=== PATIENT | male | born 1975 | race Caucasian/White ===

== ENCOUNTER 2017-06-07 17:27 | Emergency (ER) | payer SELFPAY ==
[2017-06-07] MEDS ORDERED: FLUORESCEIN SODIUM 1 MG STRIP OP ONE (17:41)
[2017-06-07] MEDS ORDERED: PROPARACAINE 0.5% 15 ML OPHT DROP ONE (17:41)
[2017-06-07] MEDS ORDERED: OFLOXACIN 0.3% SOLN PREPACK OPHT.BTL TAKEHOME ONE (18:16)
[2017-06-07 18:17] VITALS: RESP 20
[2017-06-07 18:36] VITALS: BP 151/87; PULSE 68; TEMP 97.9; O2SAT 95
--- NOTE | 2017-06-07 18:37 | EDPHY ---
H & P Time Seen by Provider: 06/07/17 17:39 HPI/ROS: HPI Right eye irritation. 42-year-old male by private vehicle with his co-worker. Patient was using a metal tank builder prior to arrival to the emergency department. He was not using eye protection. He presents with pain, foreign body and irritation to the right eye. He reports he has some blurry vision from the right eye. No other injury or complaint. ROS: Constitutional: No fever, no chills. No weakness. Eyes: No discharge. As above. Skin: No rashes. No lacerations or abrasions. Neurological: No headache. Past medical history: Denies. Social history: Here with co-worker. Nonsmoker. Physical Exam: General Appearance: Alert, no distress. This patient is responding to questions appropriately and in full sentences. This patient appears well- hydrated and well-nourished. Eyes: Pupils equal and round no pallor or injection. No lid edema, erythema or injection. Right eye: Hawkins lamp exam with fluorescein staining; no Santiago' s sign, or ulceration. He has a well-circumscribed metallic foreign body, 5 o' clock position on the edge of the mid dilated pupil there is fluorescein uptake immediately associated with this but no evidence of extended abrasion or ulceration. Slit-lamp exam; no hypopyon, no hyphema, anterior chamber is deep and clear, no cell/flare. The upper and lower lids were everted with no gross evidence of foreign body. Neurological: Motor sensory function is grossly intact. Cranial nerves are normal. Gait is normal. Skin: Warm and dry, no rashes. Musculoskeletal: Neck is supple and nontender. Extremities are symmetrical. All joints range without pain or impingement. Psychiatric: No agitation. No depression. Database: EKG: Imaging: Procedures: Emergency department course: Proparacaine drops were instilled in the right eye. Patient had relief with this medication. Under slit-lamp examination I 1st used a wet Q-tip to try to remove this metallic foreign body. I was unable to do so. I then used the edge of a 22 gauge needle. I was able to remove about 20-25% of at but the rest of it to imbedded to removed. I spoke with solderer, Dr. Mcdonald at 6:00 p.m.. Case discussed in detail with him. He advised that we start the patient on ofloxacin ophthalmic in the emergency department which was done and he will see this patient at 8:30 a.m. in the morning in his office to remove the remainder of this metallic foreign body. This plan was discussed with the patient and his partner. He will be able to make this appointment. I emphasized the importance of follow-up. He understands this. Return to emergency department precautions were thoroughly reviewed with him. All of his questions were answered. He was discharged in good condition. Differential Diagnosis: The differential diagnosis on this patient includes but is not limited to metallic corneal foreign body. Ulceration, globe penetration, uveitis, iritis unlikely. This represents a partial list of diagnoses considered. These considerations are based on history, physical exam, past history, reassessment and diagnostic testing. Smoking Status: Never smoked Constitutional: Initial Vital Signs Temperature (C) 36.8 C 06/07/17 17:50 Heart Rate 63 06/07/17 17:50 Respiratory Rate 20 06/07/17 17:50 Blood Pressure 149/81 H 06/07/17 17:50 O2 Sat (%) 94 06/07/17 17:50 O2 Delivery Mode Room Air Allergies/Adverse Reactions: No Known Allergies Allergy (Unverified 06/07/17 17:54) Home Medications: Medication Instructions Recorded NK [No Known Home Meds] 06/07/17 Departure - Departure Disposition: Home, Routine, Self-Care Clinical Impression: Foreign body of right cornea Condition: Good Instructions: Eye Foreign Body (ED) Additional Instructions: Read and follow provided instructions. Follow-up with Dr. Mcdonald, solderer, at the [facility] office at 8:30 a.m. tomorrow morning as discussed. Go in the main entrance to the hospital and their office is just to your left. Take medication as prescribed. Ofloxacin ophthalmic eye drops: 1-2 drops to the right eye every 2 hours while awake for 2 days and then every 4-6 hours while awake for 3 days. Unless otherwise directed by solderer. Ibuprofen dosin mg every 6 hours with meals for the next 3 days only. Return to the emergency department for worsening pain, changes in vision, swelling or other serious concerns. Referrals: Parth Mcdonald MD [Medical Doctor] - As per Instructions
[2017-06-07] MEDS ORDERED: OFLOXACIN 0.3% 5ML OPHT DROPS RTEYE SCH (22:00)
== END 2017-06-07 18:56 | disposition home or self-care (01) ==
LOC: CED 17:27
PROC: 08C8XZZ Extirpation of Matter from Right Cornea, External Approach (ICD-10-PCS; principal; 2017-06-07)
DX: T15.01XA Foreign body in cornea, right eye, initial encounter (principal); W31.1XXA Contact with metalworking machines, initial encounter